=== PATIENT | female | born 1980 | race Caucasian/White ===

== ENCOUNTER 2018-12-15 06:40 | Emergency (ER) | payer MEDICAID ==
[2018-12-15] MEDS: ALBUTEROL 0.083% (NEB) 2.5 MG/3 ML AMP NEB (07:57)
[2018-12-15] MEDS: IPRATROPIUM (NEB) 0.5 MG/2.5 ML AMP NEB (07:57)
[2018-12-15] MEDS: predniSONE 20 MG TAB PO (07:59)
== END 2018-12-15 08:39 | disposition home or self-care (01) ==
LOC: E/R 06:40
DX: J20.9 Acute bronchitis, unspecified (principal); J45.901 Unspecified asthma with (acute) exacerbation
CPT/HCPCS: 94664; 99283-25

== ENCOUNTER 2019-02-12 06:05 | Emergency (ER) | payer MEDICAID | END 2019-02-12 06:50 | disposition home or self-care (01) | LOC: FTE 06:05 | DX: R05 Cough (principal); J45.909 Unspecified asthma, uncomplicated | CPT/HCPCS: 99283; Z7502 ==